=== PATIENT | female | born 1965 ===

== ENCOUNTER 2021-09-09 12:40 | Outpatient (CLI) | payer MEDICARE, SELFPAY ==
[2021-09-09 13:00] VITALS: BP 114/78; PULSE 74; RESP 18; TEMP 36.2; O2SAT 97; BMI 27.1
[2021-09-09 13:34] VITALS: BP 101/68; PULSE 69; RESP 18; TEMP 36.6; O2SAT 95
[2021-09-09 14:35] VITALS: BP 114/77; PULSE 70; RESP 18; TEMP 36.8; O2SAT 97
== END 2021-09-09 12:41 | disposition home or self-care (01) ==
PROVIDERS: PCP Nurse Practitioner Family; Visit Provider Nurse Practitioner Family
DX: U07.1 COVID-19 (principal)
CPT/HCPCS: 96365